=== PATIENT | male | born 1950 | race Caucasian/White ===

== ENCOUNTER 2016-08-22 06:31 | Day surgery (SDC) | payer MEDICARE, BC ==
[~2016-08-22 06:31] MED LIST: RINGERS SOLUTION,LACTATED 1,000 ML IV PRN; ceFAZolin SODIUM 1 GM in DEXTROSE 5 % IN WATER 100 ML IV PRN
[2016-08-22] MEDS ORDERED: RINGERS SOLUTION,LACTATED 1,000 ML IV ONE ×3 (07:45→09:41)
[2016-08-22 07:48] LABS: Hematocrit 32.1 % (42.0-52.0); Hemoglobin 10.8 gm/dL (13.5-18.0)
[2016-08-22] MEDS ORDERED: BUPIVACAINE HCL/EPINEPHRINE 50 ML VIAL IJ ONE ×2 (09:15)
--- NOTE | 2016-08-22 10:34 | OR ---
Operative Report - Dictated Report Narrative: Date: 08/22/16 Preop: Symptomatic cholelithiasis Postop: Same Proc: Laparoscopic cholecystectomy Surgeon: Bruce Bean MD EBL: < 5 cc Drains: None Anesth: GETA Comps: none apparent Descr: Pt placed in supine position and following smooth induction of GETA abdomen was prepped and draped in a sterile fashion. All port sites anesthetized with marcaine prior to incision. Small infraumbilical incision carried out and blunt dissection taken to abdominal wall. Abdomen entered with 5mm blunt port with scope within lumen of trocar. Abdomen insufflated to 15mmHg with carbon dioxide. Remaining ports, 12mm superior midline blunt, and 2 right flank 5mm blunt ports were placed under direct vision. Only fundus was visible. This was grasped and elevated. Numerous adhesions of omentum to liver, gallbladder, stomach and duodenum were taken down with blunt dissection. Cystic duct and artery were dissected free with a critical view of safety assured these structures were doubly clipped and divided. Gallbladder was removed with electrocautery and placed in endocatch bag. This was removed through the 12mm port site without difficult and the port was returned to the abdominal cavity and pneumoperitoneum was re-established. Inspection was carried out. Hemostasis was good, and no evidence of bile leak. RUQ was copiously irrigated and all the irrigant was evacuated. 12mm port site closed with tawnya-johnathon and heavy vicryl. Pneumoperitoneum evacuated. Ports removed. Incisions closed with subcuticular 4-0 vicryl and sealed with dermabond. Tolerated procedure well without apparent complications and was discharged to recovery in stable condition.
[2016-08-22] MEDS ORDERED: HYDROcodone/ACETAMINOPHEN 1 EACH TABLET PO PRN (11:02)
[2016-08-22] MEDS ORDERED: MORPHINE SULFATE 4 MG/ML SYRG ONE (11:03)
[2016-08-22] MEDS: MORPHINE SULFATE 4 MG/ML SYRG IV PRN ×2 (11:05→12:26)
[2016-08-22] MEDS ORDERED: ONDANSETRON HCL/PF 2 MG/ML VIAL IV PRN (11:29)
[2016-08-22 12:56] VITALS: BP 119/66
== END 2016-08-22 06:32 | disposition home or self-care (01) ==
LOC: AMB 06:31
PROVIDERS: ATTEND Specialist
PROC: 0FT44ZZ Resection of Gallbladder, Percutaneous Endoscopic Approach (ICD-10-PCS; principal; 2016-08-22 08:00)
DX: K80.10 Calculus of gallbladder with chronic cholecystitis without obstruction (principal); I10 Essential (primary) hypertension; E78.5 Hyperlipidemia, unspecified; I25.10 Atherosclerotic heart disease of native coronary artery without angina pectoris; N40.0 Benign prostatic hyperplasia without lower urinary tract symptoms; D59.1 Other autoimmune hemolytic anemias; B25.9 Cytomegaloviral disease, unspecified; Z87.891 Personal history of nicotine dependence; Z68.26 Body mass index [BMI] 26.0-26.9, adult

== ENCOUNTER 2016-08-23 07:16 | Emergency (ER) | payer MEDICARE, BC ==
[2016-08-23 07:28] VITALS: BP 166/79
--- NOTE | 2016-08-23 07:37 | ERNOTE ---
ER Male HPI Stated Complaint: DIFFICULTY URINATING ER Male: urinary retention Time Seen by Provider: 08/23/16 07:33 Source: patient, family Exam Limitations: no limitations Immunizations: IMMUNIZATION HX Immunizations Up to Date Yes History of Influenza Vaccine Yes Allergies/Adverse Reactions: Allergies clindamycin Allergy (Severe, Verified 08/23/16 07:23) THROAT SWELLING Home Medications: HOME MEDICATIONS Atorvastatin Calcium [Lipitor] 40 mg PO HS 02/11/13 [Last Taken 02/11/13 17:30] Pantoprazole Sodium [Protonix] 40 mg PO DAILY 02/11/13 [Last Taken 02/11/13 06: 00] Ramipril 10 mg PO DAILY 02/11/13 [Last Taken 02/11/13 06:00] ALPRAZolam [Xanax] 0.5 mg PO BID 08/21/16 [Last Taken Unknown] Aspirin [Aspirin Enteric Coated] 81 mg PO DAILY 08/21/16 [Last Taken Unknown] Finasteride [Proscar] 5 mg PO DAILY 08/21/16 [Last Taken Unknown] Folic Acid 1 mg PO DAILY 08/21/16 [Last Taken Unknown] L.acidoph,Paracasei, B.lactis [Probiotic] 1 each PO DAILY 08/21/16 [Last Taken Unknown] Tamsulosin HCl [Flomax] 0.4 mg PO DAILY 08/21/16 [Last Taken Unknown] diphenhydrAMINE HCL [Benadryl] 25 mg PO Q6H PRN 08/21/16 [Last Taken Unknown] HYDROcodone/ACETAMINOPHEN [[place] 5-325] 1 each PO Q4H PRN #60 tablet 08/22/16 [ Last Taken Unknown] - History of Present Illness Narrative: Pt had laproscopic cholecystectomy yesterday without apparent complication. he has only been able to urinate in small amounts since arriving home last night. Now having abdominal pain Timing: Present: getting worse Quality: Present: moderate, severe Onset Location: Present: suprapubic Activities at Onset: Present: none Review of Systems - Review of Systems Constitutional: Present: no symptoms reported EYE: Present: no symptoms reported ENT: Present: no symptoms reported Respiratory: Present: no symptoms reported Cardiology: Present: no symptoms reported Gastrointestinal/Abdominal: Present: See HPI, abdominal pain. Absent: nausea, vomiting Genitourinary: Present: frequency, decreased urinary output Musculoskeletal: Present: no symptoms reported Skin: Present: no symptoms reported Neurological: Present: no symptoms reported Endocrine: Present: no symptoms reported Hematologic/Lymphatic: Present: no symptoms reported Psych: Present: no symptoms reported - Patient's Past Medical History Patient History - Medical: GERD, Other Patient History - Cardiac/Respiratory: Hypertension, Hyperlipidemia, Myocardial Infarction Patient History - Cancer: No Hx of Cancer Patient History - Surgical Procedures: T & A, Other Patient History - Other: None - Family History Brother Family History - Medical: No pertinent hx Family History - Cardiac/Respiratory: CVA/Stroke, Other Family History - Cancer: No pertinent family hx Father Family History - Medical: , No pertinent hx Family History - Cardiac/Respiratory: Coronary Heart Disease Family History - Cancer: Bladder, Prostate Mother Family History - Medical: , No pertinent hx Family History - Cardiac/Respiratory: CVA/Stroke Family History - Cancer: No pertinent family hx - Social History Living Situations: home Abuse History: No History of abuse Psych History: No pertinent hx Smoking Status: Never smoker Alcohol Use: heavy Drug Use: none - Immunizations Immunizations Up to Date: Yes History of Influenza Vaccine: Yes Physical Exam - Physical Exam General Appearance: Present: wd/wn, alert, no apparent distress Neck: Present: normal inspection, nontender Respiratory: Present: no respiratory distress Gastrointestinal/Abdominal: Present: normal bowel sounds, tenderness - suprapubic with fullness of the bladder Back Exam: Present: normal inspection, no CVA tenderness Extremity Exam: Present: normal inspection, normal range of motion Neurological Exam: Present: alert, oriented, normal mood/affect Skin Exam: Present: normal color, warm/dry - surgical wound from ayah in good condition, no erythema or drainage ED Progress - Results and Orders Patient's Lab Results:: I have reviewed the patient's lab results. Results and Orders: Laboratory Tests 08/23/16 07:43 Urine Color Yellow Urine Appearance Clear Urine pH 6.0 Ur Specific [place] <=1.005 Urine Protein Negative Urine Glucose (UA) Negative Urine Ketones Negative Urine Blood Negative Urine Nitrate Negative Urine Bilirubin Negative Urine Urobilinogen Normal Ur Leukocyte Esterase Negative Urine RBC None seen Urine WBC Trace Ur Epithelial Cells Trace Amorphous Sediment Few - 1+ Urine Bacteria None seen Urine Culture Comments No culture indicated - Vital Signs Patient's Vital Signs:: I have reviewed the patient's vital signs. Vital Signs: Vital Signs 08/23/16 07:24 Pulse Rate 85 Respiratory 16 Rate Blood Pressure 166/79 O2 Sat by Pulse 99 Oximetry - Progress/Reassessment Chief Complaint: Genitourinary Problem Departure Clinical Impression: Urinary retention - Departure Disposition: Home Follow Up Needed Condition: Good Instructions: Acute Urinary Retention, Male, [id number] Additional Instructions: Take your medicine as usual. Return to ER if you are not able to urinate normally throughout the day today Referrals: Bjorn Mcdaniel DO [Primary Care Provider] -
[2016-08-23 07:51] LABS: Urine Bilirubin Negative (NEGATIVE); Urine Blood Negative /ul (NEGATIVE); Urine Ketone Negative (NEGATIVE); Urine Nitrite Negative (NEGATIVE); Urine Protein Negative (NEGATIVE); Urine Specific Gravity <=1.005 SP.GR. (1.005-1.030); Urine Urobilinogen Normal (NORMAL)
[2016-08-23 08:02] LABS: Urine Appearance Clear; Urine Color Yellow
[2016-08-23 08:03] LABS: Urine Amorphous Sediment Few - 1+ (NONE-FEW); Urine Bacteria None Seen; Urine RBC None Seen /hpf (0-5); Urine WBC TRACE /hpf (0-5)
== END 2016-08-23 08:38 | disposition home or self-care (01) ==
LOC: ER 07:16
PROC: 0T9B7ZZ Drainage of Bladder, Via Natural or Artificial Opening (ICD-10-PCS; principal; 2016-08-23)
DX: R33.9 Retention of urine, unspecified (principal); K21.9 Gastro-esophageal reflux disease without esophagitis; I10 Essential (primary) hypertension; E78.5 Hyperlipidemia, unspecified; I25.2 Old myocardial infarction

== ENCOUNTER 2016-08-24 23:00 | Emergency (ER) | payer MEDICARE, BC ==
--- NOTE | 2016-08-24 23:57 | ERNOTE ---
Lower Extremity HPI - General Time Seen by Provider: 08/24/16 23:47 Source: patient Exam Limitations: no limitations - Immun/Allergies/Home Medications Immunizations: IMMUNIZATION HX Immunizations Up to Date Yes History of Influenza Vaccine Yes Allergies/Adverse Reactions: Allergies Allergy/AdvReac Type Severity Reaction Status Date / Time clindamycin Allergy Severe THROAT Verified 08/24/16 23:23 SWELLING Home Medications: HOME MEDICATIONS Atorvastatin Calcium [Lipitor] 40 mg PO HS 02/11/13 [Last Taken 02/11/13 17:30] Pantoprazole Sodium [Protonix] 40 mg PO DAILY 02/11/13 [Last Taken 02/11/13 06: 00] Ramipril 10 mg PO DAILY 02/11/13 [Last Taken 02/11/13 06:00] ALPRAZolam [Xanax] 0.5 mg PO BID 08/21/16 [Last Taken Unknown] Aspirin [Aspirin Enteric Coated] 81 mg PO DAILY 08/21/16 [Last Taken Unknown] Finasteride [Proscar] 5 mg PO DAILY 08/21/16 [Last Taken Unknown] Folic Acid 1 mg PO DAILY 08/21/16 [Last Taken Unknown] L.acidoph,Paracasei, B.lactis [Probiotic] 1 each PO DAILY 08/21/16 [Last Taken Unknown] Tamsulosin HCl [Flomax] 0.4 mg PO DAILY 08/21/16 [Last Taken Unknown] diphenhydrAMINE HCL [Benadryl] 25 mg PO Q6H PRN 08/21/16 [Last Taken Unknown] HYDROcodone/ACETAMINOPHEN [[place] 5-325] 1 each PO Q4H PRN #60 tablet 08/22/16 [ Last Taken Unknown] - History of Present Illness Narrative: pt has a heck in place and in order for it to drain he has to have his right leg hanging down. As a result he has some dependent edema of right ankle which has been hanging down Review of Systems - Review of Systems Constitutional: Present: no symptoms reported EYE: Present: no symptoms reported ENT: Present: no symptoms reported Respiratory: Present: no symptoms reported Cardiology: Present: no symptoms reported Gastrointestinal/Abdominal: Present: no symptoms reported Genitourinary: Present: no symptoms reported Musculoskeletal: Present: other - NO pain. only some swelling right ankle and no history of trauma - Patient's Past Medical History Patient History - Medical: GERD, Other Patient History - Cardiac/Respiratory: Hypertension, Hyperlipidemia, Myocardial Infarction Patient History - Cancer: No Hx of Cancer Patient History - Surgical Procedures: Cholecystectomy, T & A, Other Patient History - Other: None - Family History Brother Family History - Medical: No pertinent hx Family History - Cardiac/Respiratory: CVA/Stroke, Other Family History - Cancer: No pertinent family hx Father Family History - Medical: , No pertinent hx Family History - Cardiac/Respiratory: Coronary Heart Disease Family History - Cancer: Bladder, Prostate Mother Family History - Medical: , No pertinent hx Family History - Cardiac/Respiratory: CVA/Stroke Family History - Cancer: No pertinent family hx - Social History Living Situations: home Abuse History: No History of abuse Psych History: No pertinent hx Smoking Status: Former smoker Alcohol Use: heavy Drug Use: none - Immunizations Immunizations Up to Date: Yes History of Influenza Vaccine: Yes Physical Exam - Physical Exam General Appearance: Present: wd/wn, alert, no apparent distress Ears, Nose, Throat: Present: normal ENT inspection Neck: Present: normal inspection, nontender Respiratory: Present: no respiratory distress, normal breath sounds, no accessory muscle use, chest nontender, lungs clear Cardiovascular/Chest: Present: regular rate, rhythm, no murmur Extremity Exam: Present: other - minimal dependent edema of the right ankle. when ankle is raised, swelling is actually better. NO Jana's sign ED Progress - Vital Signs Patient's Vital Signs:: I have reviewed the patient's vital signs. Vital Signs: Vital Signs 08/24/16 23:19 Temperature 36.4 C L Pulse Rate 89 Respiratory 18 Rate Blood Pressure 145/66 O2 Sat by Pulse 97 Oximetry - Progress/Reassessment Chief Complaint: Lower Extremity Pain/ Injury Plan - Plan Plan: this patient has dependent edema from his ankle hanging down Departure Clinical Impression: Ankle edema - Departure Disposition: Home self-care Condition: Good Instructions: Edema, [id number] Additional Instructions: please elevate right ankle to have swelling subside Referrals: Bjorn Mcdaniel DO [Primary Care Provider] -
[2016-08-25 01:19] VITALS: BP 124/84
== END 2016-08-25 00:07 | disposition home or self-care (01) ==
LOC: ER 23:00
DX: R60.0 Localized edema (principal); Z87.891 Personal history of nicotine dependence